=== PATIENT | female | born 1965 | race Caucasian/White ===

== ENCOUNTER 2023-06-20 10:44 | Emergency (ER) | payer MEDICAID ==
[~2023-06-20] VITALS: Ht 162.6 cm; Wt 51.7 kg
[2023-06-20 11:01] VITALS: BP 123/67; PULSE 74; RESP 18; TEMP 97.1; O2SAT 97
[2023-06-20] MEDS: NACL 0.9% 1,000 ML IV ONE (12:33)
[2023-06-20] MEDS ORDERED: diphenhydrAMINE 50 MG/ML VIAL ONE (12:35)
[2023-06-20] MEDS ORDERED: PROCHLORPERAZINE 10 MG/2 ML VIAL ONE (12:35)
[2023-06-20] MEDS: diphenhydrAMINE 50 MG/ML VIAL IVP ONE (12:36)
[2023-06-20] MEDS: PROCHLORPERAZINE 10 MG/2 ML VIAL IVP ONE (12:40)
[2023-06-20 13:56] LABS: BASOPHILS # (AUTO) 0.1 K/uL (0.00-0.22); BASOPHILS % (AUTO) 0.6 % (0.0-2.0); EOSINOPHILS # (AUTO) 0.3 K/uL (0-0.4); EOSINOPHILS % (AUTO) 3.3 % (0.0-4.0); HEMATOCRIT 40.9 % (36-48); HEMOGLOBIN 13.9 g/dL (12.0-16.0); LYMPHOCYTES # (AUTO) 2.4 K/uL (2.5-16.5); LYMPHOCYTES % (AUTO) 29.5 % (20.5-51.1); MEAN CORPUSCULAR HEMOGLOBIN 30 pg (27-31); MEAN CORPUSCULAR HGB CONC 34 g/dL (33-37); MEAN CORPUSCULAR VOLUME 88.4 fL (80-94); MONOCYTES # (AUTO) 0.5 K/uL (0.8-1.0); NEUTROPHILS # (AUTO) 4.9 K/uL (1.8-7.7); NEUTROPHILS % (AUTO) 60.6 % (42.2-75.2); PLATELET COUNT (AUTO) 218 K/uL (140-450); RED BLOOD CELL COUNT(AUTO) 4.62 MIL/uL (4.20-5.40); RED CELL DISTRIBUTION WIDTH 14.4 % (11.6-13.7)
[2023-06-20 13:58] VITALS: BP 130/54; PULSE 43; RESP 20; TEMP 97.8; O2SAT 98
[2023-06-20 14:22] LABS: INR 0.99 (0.8-1.2); PROTHROMBIN TIME 10.4 secs (10.8-13.4)
[2023-06-20 14:23] LABS: ANION GAP 11.8 (8-16); CALCIUM 8.7 mg/dL (8.5-10.1); CARBON DIOXIDE 26.8 mmol/L (21-32); CREATININE 0.9 mg/dL (0.6-1.3); POTASSIUM 4.6 mmol/L (3.5-5.1)
[2023-06-20] MEDS ORDERED: METO-485 PO (14:36)
[2023-06-20] MEDS ORDERED: NAPR-54 PO (14:36)
== END 2023-06-20 15:37 | disposition home or self-care (01) ==
LOC: MED 10:44
DX: R51.9 Headache, unspecified (principal); R11.0 Nausea; R50.9 Fever, unspecified; Z86.73 Personal history of transient ischemic attack (TIA), and cerebral infarction without residual deficits; Z98.890 Other specified postprocedural states; Z79.899 Other long term (current) drug therapy
CPT/HCPCS: 36415; 70450; 70496; 70498; 80048; 82948; 85025; 85610; 96361; 96374; 96375; 99285; J0780; J1200; J7030; Q9967